=== PATIENT | female | born 1990 | race Caucasian/White ===

== ENCOUNTER 2017-06-28 08:43 | Emergency (ER) | payer MEDICAID, OTHER, SELFPAY ==
[~2017-06-28] VITALS: Ht 162.6 cm; Wt 109.1 kg
[2017-06-28 08:43] VITALS: BP 137/84
[2017-06-28] MEDS ORDERED: PROAAER10 INH ×2 (08:51→09:21)
[2017-06-28] MEDS ORDERED: IPRASOL4 IN ×2 (08:51→09:21)
[2017-06-28] MEDS ORDERED: COMBAER6 INH (08:51)
[2017-06-28] MEDS ORDERED: AZIT-12 PO (09:17)
[2017-06-28] MEDS ORDERED: PRED20TA PO (09:23)
== END 2017-06-28 09:37 | disposition home or self-care (01) ==
LOC: M ED 08:43
DX: J20.9 Acute bronchitis, unspecified (principal); F17.210 Nicotine dependence, cigarettes, uncomplicated; J45.909 Unspecified asthma, uncomplicated; Z88.0 Allergy status to penicillin; Z91.048 Other nonmedicinal substance allergy status; Z79.3 Long term (current) use of hormonal contraceptives; Z79.899 Other long term (current) drug therapy

== ENCOUNTER 2017-07-12 22:28 | Emergency (ER) | payer MEDICAID | END 2017-07-13 01:18 | disposition left against medical advice (07) | LOC: M ED 22:28 | DX: Z53.21 Procedure and treatment not carried out due to patient leaving prior to being seen by health care provider (principal) | CPT/HCPCS: 99281 ==

== ENCOUNTER 2017-07-27 14:43 | Emergency (ER) | payer SELFPAY, MEDICAID ==
[2017-07-27] MEDS: KETOROLAC 60 MG/2 ML VIAL (J1885) IM (17:43)
== END 2017-07-27 18:10 | disposition home or self-care (01) ==
LOC: M ED 14:43
DX: M25.561 Pain in right knee (principal); F17.210 Nicotine dependence, cigarettes, uncomplicated; Z79.899 Other long term (current) drug therapy; Z88.1 Allergy status to other antibiotic agents; Z88.0 Allergy status to penicillin; Z91.048 Other nonmedicinal substance allergy status
CPT/HCPCS: J1885

== ENCOUNTER → 2017-09-18 | Outpatient (CLI) | payer OTHER | LOC: M RAD 17:19 | DX: N64.4 Mastodynia (principal) | CPT/HCPCS: 76642 ==

== ENCOUNTER → 2017-11-04 | Outpatient (REF) | payer OTHER ==
[2017-11-04 22:01] LABS: APPEARANCE, URINE HAZY (CLEAR); BACTERIA, URINE AUTO NEGATIVE (NEGATIVE); BILIRUBIN, URINE AUTO NEGATIVE (NEGATIVE); BLOOD, URINE BLOOD NEGATIVE (NEGATIVE); COLOR, URINE YELLOW (YELLOW); GLUCOSE, URINE (UA) AUTO NEGATIVE (NEGATIVE); KETONE, URINE AUTO NEGATIVE (NEGATIVE); LEUKOCYTE ESTERASE, URINE AUTO NEGATIVE (NEGATIVE); MUCUS, URINE SMALL (NEGATIVE); NITRITE, URINE AUTO NEGATIVE (NEGATIVE); PROTEIN, URINE AUTO NEGATIVE (NEGATIVE); RBC, URINE AUTO 1 /HPF (0-3); SPECIFIC GRAVITY URINE AUTO 1.024 (1.002-1.035); SQUAMOUS EPITHELIAL CELL UR AU 4 /HPF (0-6); UROBILINOGEN, URINE AUTO 0.2 mg/dL (0.0-2.0); WBC, URINE AUTO 1 /HPF (0-3)
[2017-11-04 23:24] LABS: CHLAMYDIA DNA AMPLIFICATION NEGATIVE (NEGATIVE); GC DNA AMPLIFICATION NEGATIVE (NEGATIVE)
== END ==
LOC: M LAB REF 10:37
DX: N39.0 Urinary tract infection, site not specified (principal)
CPT/HCPCS: 81001

== ENCOUNTER 2017-12-03 11:46 | Emergency (ER) | payer OTHER ==
[2017-12-03] MEDS: ALPRAZolam 0.25 MG TAB PO (14:39)
== END 2017-12-03 14:44 | disposition home or self-care (01) ==
LOC: M ED 11:46
DX: F41.9 Anxiety disorder, unspecified (principal); Z88.1 Allergy status to other antibiotic agents; Z91.048 Other nonmedicinal substance allergy status; Z88.0 Allergy status to penicillin
CPT/HCPCS: 99283

== ENCOUNTER → 2017-12-09 | Outpatient (REF) | payer OTHER ==
[2017-12-16 07:01] LABS: SUMMARY SEE SEPARATE REPORT
== END ==
LOC: M LAB REF 16:31
DX: F34.1 Dysthymic disorder (principal)
CPT/HCPCS: 80307

== ENCOUNTER → 2017-12-09 | Outpatient (REF) | payer OTHER, MEDICAID ==
[2017-12-09 19:51] LABS: BASO # 0.1 10^3/uL (0.0-0.2); BASO % 0.7 % (0.0-1.0); EOS # 0.1 10^3/uL (0.0-0.50); EOS % 1.8 % (0.0-3.0); HEMATOCRIT 39.9 % (36.0-47.0); HEMOGLOBIN 12.9 g/dl (12.0-15.5); IMMATURE GRANULOCYTE % 0.4 % (0-3.0); LYMPH # 1.5 10^3/uL (1.5-6.5); LYMPH % 21.4 % (24.0-44.0); MEAN CORPUSCULAR HEMOGLOBIN 29.9 pg (27.0-33.0); MEAN CORPUSCULAR HGB CONC 32.3 g/dl (32.0-36.5); MEAN CORPUSCULAR VOLUME 92.6 fl (80.0-96.0); MONO # 0.5 10^3/uL (0.0-0.8); MONO % 7.6 % (0.0-5.0); NEUTROPHILS # 4.6 10^3/uL (1.8-7.7); NEUTROPHILS % 68.1 % (36.0-66.0); PLATELET COUNT, AUTOMATED 393 10^3/uL (150-450); RED BLOOD COUNT 4.31 10^6/uL (4.00-5.40); RED CELL DISTRIBUTION WIDTH 13.7 % (11.5-14.5); WHITE BLOOD COUNT 6.8 10^3/uL (4.0-10.0)
[2017-12-09 20:06] LABS: FREE THYROXINE INDEX 3.2 % (1.3-4.8); T UPTAKE 34 % (30-39); THYROXINE (T4) 9.4 UG/DL (4.5-12.0)
[2017-12-09 20:30] LABS: ESTIMATED AVERAGE GLUCOSE 100 MG/DL (60-110); HEMOGLOBIN A1c 5.1 %
[2017-12-09 22:41] LABS: TOTAL 25(OH) VITAMIN D 12.7 NG/ML (30.0-100.0)
== END ==
LOC: M LAB REF 18:28
DX: F34.1 Dysthymic disorder (principal)
CPT/HCPCS: 84443

== ENCOUNTER → 2017-12-23 | Outpatient (REF) | payer OTHER ==
[2017-12-23 14:12] LABS: APPEARANCE, URINE HAZY (CLEAR); BACTERIA, URINE AUTO 1+ (NEGATIVE); BILIRUBIN, URINE AUTO NEGATIVE (NEGATIVE); BLOOD, URINE BLOOD NEGATIVE (NEGATIVE); COLOR, URINE YELLOW (YELLOW); GLUCOSE, URINE (UA) AUTO NEGATIVE (NEGATIVE); KETONE, URINE AUTO NEGATIVE (NEGATIVE); LEUKOCYTE ESTERASE, URINE AUTO 3+ (NEGATIVE); NITRITE, URINE AUTO NEGATIVE (NEGATIVE); PROTEIN, URINE AUTO NEGATIVE (NEGATIVE); RBC, URINE AUTO 8 /HPF (0-3); SQUAMOUS EPITHELIAL CELL UR AU 6 /HPF (0-6); UROBILINOGEN, URINE AUTO 0.2 mg/dL (0.0-2.0); WBC, URINE AUTO 45 /HPF (0-3)
== END ==
LOC: M LAB REF 13:15
DX: N39.0 Urinary tract infection, site not specified (principal)

== ENCOUNTER 2017-12-25 02:46 | Emergency (ER) | payer OTHER ==
[2017-12-25] MEDS: diphenhydrAMINE 12.5MG/5ML ELIXIR UDC PO (04:58)
[2017-12-25] MEDS: MAALOX 30 ML SUSP *UDC PO (04:58)
== END 2017-12-25 05:15 | disposition home or self-care (01) ==
LOC: M ED 02:46
DX: B00.2 Herpesviral gingivostomatitis and pharyngotonsillitis (principal); J45.909 Unspecified asthma, uncomplicated; Z79.899 Other long term (current) drug therapy; Z91.89 Other specified personal risk factors, not elsewhere classified; Z88.1 Allergy status to other antibiotic agents; Z88.0 Allergy status to penicillin
CPT/HCPCS: 87255

== ENCOUNTER → 2018-01-11 | Outpatient (REF) | payer OTHER ==
[2018-01-11 22:30] LABS: APPEARANCE, URINE HAZY (CLEAR); BACTERIA, URINE AUTO NEGATIVE (NEGATIVE); BILIRUBIN, URINE AUTO NEGATIVE (NEGATIVE); BLOOD, URINE BLOOD NEGATIVE (NEGATIVE); COLOR, URINE YELLOW (YELLOW); GLUCOSE, URINE (UA) AUTO NEGATIVE (NEGATIVE); KETONE, URINE AUTO NEGATIVE (NEGATIVE); LEUKOCYTE ESTERASE, URINE AUTO 1+ (NEGATIVE); MUCUS, URINE SMALL (NEGATIVE); NITRITE, URINE AUTO NEGATIVE (NEGATIVE); PROTEIN, URINE AUTO 1+ mg/dL (NEGATIVE); RBC, URINE AUTO 4 /HPF (0-3); SPECIFIC GRAVITY URINE AUTO 1.041 (1.002-1.035); SQUAMOUS EPITHELIAL CELL UR AU 15 /HPF (0-6); UROBILINOGEN, URINE AUTO 0.2 mg/dL (0.0-2.0); WBC, URINE AUTO 2 /HPF (0-3)
== END ==
LOC: M LAB REF 09:58
DX: N39.0 Urinary tract infection, site not specified (principal)
CPT/HCPCS: 81001

== ENCOUNTER → 2018-01-12 | Outpatient (REF) | payer OTHER | LOC: M LAB REF 09:03 | DX: K13.70 Unspecified lesions of oral mucosa (principal) | CPT/HCPCS: 87255 ==

== ENCOUNTER → 2018-02-10 | Outpatient (CLI) | payer OTHER ==
[2018-02-10 12:01] LABS: BASO % 0.5 % (0.0-1.0); EOS # 0.2 10^3/uL (0.0-0.50); HEMOGLOBIN 11.7 g/dl (12.0-15.5); IMMATURE GRANULOCYTE % 0.2 % (0-3.0); LYMPH # 1.2 10^3/uL (1.5-6.5); LYMPH % 14.6 % (24.0-44.0); MEAN CORPUSCULAR HEMOGLOBIN 30.3 pg (27.0-33.0); MEAN CORPUSCULAR HGB CONC 32.5 g/dl (32.0-36.5); MEAN CORPUSCULAR VOLUME 93.3 fl (80.0-96.0); MONO # 0.6 10^3/uL (0.0-0.8); MONO % 6.8 % (0.0-5.0); NEUTROPHILS # 6.4 10^3/uL (1.8-7.7); NEUTROPHILS % 75.9 % (36.0-66.0); PLATELET COUNT, AUTOMATED 336 10^3/uL (150-450); RED BLOOD COUNT 3.86 10^6/uL (4.00-5.40); RED CELL DISTRIBUTION WIDTH 14.2 % (11.5-14.5); WHITE BLOOD COUNT 8.4 10^3/uL (4.0-10.0)
[2018-02-10 12:03] LABS: APPEARANCE, URINE CLEAR (CLEAR); BACTERIA, URINE AUTO NEGATIVE (NEGATIVE); BILIRUBIN, URINE AUTO NEGATIVE (NEGATIVE); BLOOD, URINE BLOOD NEGATIVE (NEGATIVE); COLOR, URINE YELLOW (YELLOW); GLUCOSE, URINE (UA) AUTO NEGATIVE (NEGATIVE); KETONE, URINE AUTO NEGATIVE (NEGATIVE); LEUKOCYTE ESTERASE, URINE AUTO NEGATIVE (NEGATIVE); NITRITE, URINE AUTO NEGATIVE (NEGATIVE); PROTEIN, URINE AUTO NEGATIVE (NEGATIVE); RBC, URINE AUTO 2 /HPF (0-3); SPECIFIC GRAVITY URINE AUTO 1.015 (1.002-1.035); SQUAMOUS EPITHELIAL CELL UR AU 2 /HPF (0-6); UROBILINOGEN, URINE AUTO 0.2 mg/dL (0.0-2.0); WBC, URINE AUTO 0 /HPF (0-3)
[2018-02-10 12:17] LABS: CONTROL LINE HCG INT CTR LINE PRESENT; HCG, SERUM QUALITATIVE NEGATIVE (NEGATIVE)
[2018-02-10 12:24] LABS: ERYTHROCYTE SEDIMENTATION RATE 41 mm/hr (0-20)
[2018-02-10 12:36] LABS: FREE T4 1.03 NG/DL (0.76-1.46)
[2018-02-11 14:17] LABS: ANTI DOUBLE STRAND-DNA AB <1 IU/mL (0-9); ANTINUCLEAR ANTIBODIES DIRECT Negative (Negative)
== END ==
LOC: M LAB 11:14
DX: R42 Dizziness and giddiness (principal)
CPT/HCPCS: 84443

== ENCOUNTER → 2018-02-23 | Outpatient (REF) | payer OTHER | LOC: M SFHCPLAZ 14:00 | DX: R30.0 Dysuria (principal); N94.6 Dysmenorrhea, unspecified ==

== ENCOUNTER → 2018-03-20 | Outpatient (REF) | payer OTHER ==
[2018-03-20 17:04] LABS: ALBUMIN 3.7 GM/DL (3.2-5.2); ALBUMIN/GLOBULIN RATIO 1.23 (1.00-1.93); ALKALINE PHOSPHATASE 70 U/L (45-117); ALT/SGPT 19 U/L (12-78); ANION GAP 8 MEQ/L (8-16); AST/SGOT 10 U/L (7-37); BILIRUBIN,TOTAL 0.3 MG/DL (0.2-1.0); BLOOD UREA NITROGEN 10 MG/DL (7-18); CALCIUM LEVEL 8.6 MG/DL (8.5-10.1); CARBON DIOXIDE LEVEL 27 MEQ/L (21-32); CHLORIDE LEVEL 108 MEQ/L (98-107); CHOLESTEROL LEVEL 109 MG/DL (<200); CHOLESTEROL RISK RATIO 2.319 (<5); CREATININE FOR GFR 0.68 MG/DL (0.55-1.30); FREE THYROXINE INDEX 3.6 % (1.3-4.8); GLOMERULAR FILTRATION RATE > 60.0 (>60); GLUCOSE, FASTING 69 MG/DL (70-100); HDL CHOLESTEROL 47 MG/DL (>40); LDL CHOLESTEROL 50.2 MG/DL (<100); NON-HDL-C 62 MG/DL; POTASSIUM SERUM 4.2 MEQ/L (3.5-5.1); SODIUM LEVEL 143 MEQ/L (136-145); T UPTAKE 34 % (30-39); THYROXINE (T4) 10.7 UG/DL (4.5-12.0); TOTAL PROTEIN 6.7 GM/DL (6.4-8.2); TRIGLYCERIDES LEVEL 59 MG/DL (<150)
[2018-03-20 17:12] LABS: ESTIMATED AVERAGE GLUCOSE 97 MG/DL (60-110)
== END ==
LOC: M SFHCPLAZ 14:29
DX: E66.09 Other obesity due to excess calories (principal)
CPT/HCPCS: 84443

== ENCOUNTER → 2018-04-23 | Outpatient (CLI) | payer OTHER ==
[2018-04-23 12:38] LABS: HCG, SERUM QUANTITATIVE 12067 MIU/ML
== END ==
LOC: M LAB 10:46
DX: N91.1 Secondary amenorrhea (principal)
CPT/HCPCS: 84702

== ENCOUNTER 2018-04-26 13:12 | Emergency (ER) | payer OTHER ==
[2018-04-26 13:36] LABS: HEMATOCRIT 36.7 % (36.0-47.0); MEAN CORPUSCULAR HEMOGLOBIN 30.2 pg (27.0-33.0); MEAN CORPUSCULAR HGB CONC 32.7 g/dl (32.0-36.5); MEAN CORPUSCULAR VOLUME 92.4 fl (80.0-96.0); PLATELET COUNT, AUTOMATED 355 10^3/uL (150-450); RED BLOOD COUNT 3.97 10^6/uL (4.00-5.40); RED CELL DISTRIBUTION WIDTH 12.7 % (11.5-14.5); WHITE BLOOD COUNT 9.7 10^3/uL (4.0-10.0)
[2018-04-26 14:25] LABS: HCG, SERUM QUANTITATIVE 11111 MIU/ML
== END 2018-04-26 15:43 | disposition home or self-care (01) ==
LOC: M ED 13:12
DX: O20.0 Threatened abortion (principal); O10.011 Pre-existing essential hypertension complicating pregnancy, first trimester; O99.511 Diseases of the respiratory system complicating pregnancy, first trimester; O99.341 Other mental disorders complicating pregnancy, first trimester; O36.8390 Maternal care for abnormalities of the fetal heart rate or rhythm, unspecified trimester, not applicable or unspecified; O20.8 Other hemorrhage in early pregnancy; Z3A.01 Less than 8 weeks gestation of pregnancy; Z83.3 Family history of diabetes mellitus; Z82.49 Family history of ischemic heart disease and other diseases of the circulatory system; Z79.899 Other long term (current) drug therapy; Z88.1 Allergy status to other antibiotic agents; Z88.0 Allergy status to penicillin; Z91.89 Other specified personal risk factors, not elsewhere classified
CPT/HCPCS: 76801

== ENCOUNTER 2018-04-29 05:35 | Day surgery (SDC) | payer OTHER ==
[2018-04-29] MEDS ORDERED: LIDOCAINE 1% SDV INJ 30 ML VIAL As Ordered (07:12)
[2018-04-29] MEDS ORDERED: KETOROLAC 60 MG/2 ML VIAL (J1885) As Ordered (07:41)
[2018-04-29] MEDS ORDERED: ONDANSETRON 4MG/2ML VIAL (J2405) As Ordered (07:41)
[2018-04-29] MEDS ORDERED: PROPOFOL 200 MG/20 ML VIAL As Ordered (07:41)
[2018-04-29] MEDS ORDERED: fentaNYL 100 MCG/2 ML INJECTION (J3010) As Ordered ×2 (07:41→07:48)
[2018-04-29] MEDS ORDERED: MIDAZOLAM INJ 2 MG/2 ML VIAL (J2250) As Ordered (07:41)
[2018-04-29] MEDS ORDERED: dexameTHASONE 4 MG/ML 1ML VIAL (J1100) As Ordered (07:41)
[2018-04-29] MEDS ORDERED: LIDOCAINE 2% INJ 100 MG/5 ML SDV (FOR ANES.) As Ordered (07:41)
[2018-04-29] MEDS ORDERED: PERCOCET 5MG/325MG TAB As Ordered (08:20)
[2018-04-29] MEDS: PERCOCET 5MG/325MG TAB PO ×2 (08:23→09:00)
[2018-04-29] MEDS ORDERED: METOCLOPRAMIDE INJ 10MG/2ML VIAL (J2765) IV (08:30)
[2018-04-29] MEDS ORDERED: MEPERIDINE INJ 25 MG/ML VIAL (J2175) IV (08:30)
[2018-04-29] MEDS ORDERED: ONDANSETRON 4MG/2ML VIAL (J2405) IV (08:30)
[2018-04-29] MEDS ORDERED: fentaNYL 100 MCG/2 ML INJECTION (J3010) IV (08:30)
[2018-04-29] MEDS ORDERED: LR 1,000 ML IV (08:30)
[2018-04-29] MEDS ORDERED: PERCOCET 5MG/325MG TAB PO (09:00)
[2018-04-29] MEDS ORDERED: KETOROLAC 30 MG/ML VIAL (J1885) IV (09:00)
== END 2018-04-29 09:55 | disposition home or self-care (01) ==
LOC: M SDC 05:35
DX: O02.1 Missed abortion (principal); F41.9 Anxiety disorder, unspecified; F32.9 Major depressive disorder, single episode, unspecified; J45.909 Unspecified asthma, uncomplicated; Z88.0 Allergy status to penicillin; F17.210 Nicotine dependence, cigarettes, uncomplicated
CPT/HCPCS: 59820

== ENCOUNTER → 2018-06-30 | Outpatient (CLI) | payer OTHER ==
[~2018-06-30] MED LIST: ACYC400T PO; AZIT-12 PO; COMBAER6 INH; IBUP80TA PO; IPRA0.00 IN; MAALSUS2 PO; MACR100C43 PO; NAPR-885 PO; PERCOCET PO; PRED10PA PO; PRED20TA PO; PROAAER10 INH; PYRI1TAB5 PO; TYLE325T5 PO; VALA1TAB2 PO; XANA0.25 PO
== END ==
LOC: M LAB 16:33
PROVIDERS: ATTEND Specialist
DX: N91.2 Amenorrhea, unspecified (principal)

== ENCOUNTER → 2019-02-25 | Outpatient (CLI) | payer OTHER ==
[2019-02-25 17:23] LABS: HEMATOCRIT 37.3 % (36.0-47.0); HEMOGLOBIN 12.3 g/dl (12.0-15.5); MEAN CORPUSCULAR HEMOGLOBIN 29.2 pg (27.0-33.0); MEAN CORPUSCULAR VOLUME 88.6 fl (80.0-96.0); PLATELET COUNT, AUTOMATED 407 10^3/uL (150-450); RED BLOOD COUNT 4.21 10^6/uL (4.00-5.40)
[2019-02-25 17:37] LABS: HEMOGLOBIN A1c 5.5 %
[2019-02-25 17:47] LABS: ALBUMIN 3.8 GM/DL (3.2-5.2); ALT/SGPT 22 U/L (12-78); BILIRUBIN,TOTAL 0.2 MG/DL (0.2-1.0); BLOOD UREA NITROGEN 8 MG/DL (7-18); CALCIUM LEVEL 8.7 MG/DL (8.5-10.1); CARBON DIOXIDE LEVEL 26 MEQ/L (21-32); CHLORIDE LEVEL 107 MEQ/L (98-107); CHOLESTEROL LEVEL 157 MG/DL (<200); CHOLESTEROL RISK RATIO 3.488 (<5); CREATININE FOR GFR 0.85 MG/DL (0.55-1.30); GLOMERULAR FILTRATION RATE > 60.0 (>60); GLUCOSE, FASTING 77 MG/DL (70-100); HDL CHOLESTEROL 45 MG/DL (>40); LDL CHOLESTEROL 96 MG/DL (<100); NON-HDL-C 112 MG/DL; POTASSIUM SERUM 3.7 MEQ/L (3.5-5.1); SODIUM LEVEL 141 MEQ/L (136-145); TRIGLYCERIDES LEVEL 81 MG/DL (<150)
== END ==
LOC: M LAB 15:41
PROVIDERS: ATTEND Internal Medicine
DX: Z00.00 Encounter for general adult medical examination without abnormal findings (principal)

== ENCOUNTER → 2019-02-25 | Outpatient (CLI) | payer OTHER ==
[2019-02-25 17:23] LABS: BASO # 0.1 10^3/uL (0.0-0.2); BASO % 0.5 % (0.0-1.0); EOS # 0.2 10^3/uL (0.0-0.50); EOS % 1.8 % (0.0-3.0); HEMATOCRIT 38.7 % (36.0-47.0); HEMOGLOBIN 12.6 g/dl (12.0-15.5); LYMPH # 1.6 10^3/uL (1.5-4.5); LYMPH % 16.8 % (24.0-44.0); MEAN CORPUSCULAR HEMOGLOBIN 29.8 pg (27.0-33.0); MEAN CORPUSCULAR HGB CONC 32.6 g/dl (32.0-36.5); MEAN CORPUSCULAR VOLUME 91.5 fl (80.0-96.0); MONO # 0.5 10^3/uL (0.0-0.8); NEUTROPHILS # 7.3 10^3/uL (1.8-7.7); NEUTROPHILS % 75.4 % (36.0-66.0); PLATELET COUNT, AUTOMATED 386 10^3/uL (150-450); RED BLOOD COUNT 4.23 10^6/uL (4.00-5.40); WHITE BLOOD COUNT 9.8 10^3/uL (4.0-10.0)
[2019-02-25 17:47] LABS: HEMATOCRIT 38.7 % (36.0-47.0)
[2019-02-25 17:54] LABS: ALBUMIN 3.7 GM/DL (3.2-5.2); ALT/SGPT 21 U/L (12-78); BILIRUBIN,TOTAL 0.2 MG/DL (0.2-1.0); BLOOD UREA NITROGEN 8 MG/DL (7-18); CALCIUM LEVEL 8.5 MG/DL (8.5-10.1); CARBON DIOXIDE LEVEL 26 MEQ/L (21-32); CHLORIDE LEVEL 106 MEQ/L (98-107); CREATININE FOR GFR 0.85 MG/DL (0.55-1.30); FREE T3 2.5 PG/ML (2.2-4.0); GLOMERULAR FILTRATION RATE > 60.0 (>60); GLUCOSE, FASTING 73 MG/DL (70-100); POTASSIUM SERUM 3.7 MEQ/L (3.5-5.1); RHEUMATOID FACTOR QUANT < 10.0 IU/ML (<15.0); SODIUM LEVEL 140 MEQ/L (136-145); TOTAL PROTEIN 6.8 GM/DL (6.4-8.2)
[2019-02-25 17:56] LABS: TOTAL 25(OH) VITAMIN D 15.5 NG/ML (30.0-100.0); VITAMIN B12 LEVEL 629 PG/ML (247-911)
[2019-02-26 10:10] LABS: THYROID PEROXIDASE ANTIBODY > 1300.0 U/ML (<60.0)
== END ==
LOC: M LAB 15:46
PROVIDERS: ATTEND Nurse Practitioner Pediatrics
DX: F60.3 Borderline personality disorder (principal); F41.1 Generalized anxiety disorder

== ENCOUNTER → 2019-03-12 | Outpatient (CLI) | payer OTHER ==
[~2019-03-12] MED LIST changes: -VALA1TAB2 PO; +VALA1TAB64 PO
[2019-03-12 14:34] LABS: FOLLICLE STIMULATING HORMONE 5.1 mIU/mL; LUTEINIZING HORMONE 2.6 mIU/mL; PROGESTERONE 0.25 NG/ML
[2019-03-18 00:06] LABS: DEHYDROEPIANDROSTERONE UNCONJ 92 ng/dL (31-701); ESTROGENS TOTAL 90 pg/mL (.)
== END ==
LOC: M LAB 13:23
PROVIDERS: ATTEND Nurse Practitioner Pediatrics
DX: F32.81 Premenstrual dysphoric disorder (principal)

== ENCOUNTER → 2019-03-31 | Outpatient (CLI) | payer OTHER ==
[~2019-03-31] MED LIST changes: +VALA1TAB2 PO; -VALA1TAB64 PO
[2019-03-31 11:25] LABS: FREE T3 3.2 PG/ML (2.2-4.0); FREE T4 1.11 NG/DL (0.76-1.46)
== END ==
LOC: M LAB 10:22
PROVIDERS: ATTEND Nurse Practitioner Pediatrics
DX: E06.3 Autoimmune thyroiditis (principal); F33.2 Major depressive disorder, recurrent severe without psychotic features; F90.0 Attention-deficit hyperactivity disorder, predominantly inattentive type

== ENCOUNTER → 2019-05-12 | Outpatient (CLI) | payer OTHER ==
[2019-05-12 14:32] LABS: FREE T3 3.3 PG/ML (2.2-4.0); FREE T4 1.2 NG/DL (0.76-1.46)
[2019-05-12 14:37] LABS: TOTAL 25(OH) VITAMIN D 18.5 NG/ML (30.0-100.0)
== END ==
LOC: M LAB 12:55
PROVIDERS: ATTEND Nurse Practitioner Pediatrics
DX: E06.3 Autoimmune thyroiditis (principal); F33.2 Major depressive disorder, recurrent severe without psychotic features

== ENCOUNTER → 2019-08-09 | Outpatient (CLI) | payer OTHER ==
[~2019-08-09] MED LIST changes: -VALA1TAB2 PO; +VALA1TAB64 PO
== END ==
LOC: M LAB 13:55
PROVIDERS: ATTEND Internal Medicine
DX: Z3A.01 Less than 8 weeks gestation of pregnancy (principal)

== ENCOUNTER → 2019-08-27 | Outpatient (REF) | payer OTHER ==
[~2019-08-27] MED LIST changes: +VALA1TAB5 PO; -VALA1TAB64 PO
== END ==
LOC: M SFHCPLAZ 15:58
DX: Z3A.09 9 weeks gestation of pregnancy (principal)

== ENCOUNTER → 2019-08-27 | Outpatient (CLI) | payer OTHER ==
[2019-08-27 18:07] LABS: AMORPHOUS SEDIMENT SMALL (NEGATIVE); APPEARANCE, URINE HAZY (CLEAR); BACTERIA, URINE AUTO 1+ (NEGATIVE); BILIRUBIN, URINE AUTO NEGATIVE (NEGATIVE); BLOOD, URINE BLOOD NEGATIVE (NEGATIVE); COLOR, URINE YELLOW (YELLOW); GLUCOSE, URINE (UA) AUTO NEGATIVE (NEGATIVE); KETONE, URINE AUTO NEGATIVE (NEGATIVE); LEUKOCYTE ESTERASE, URINE AUTO TRACE (NEGATIVE); MUCUS, URINE SMALL (NEGATIVE); NITRITE, URINE AUTO NEGATIVE (NEGATIVE); PROTEIN, URINE AUTO NEGATIVE (NEGATIVE); RBC, URINE AUTO 2 /HPF (0-3); SPECIFIC GRAVITY URINE AUTO 1.027 (1.002-1.035); SQUAMOUS EPITHELIAL CELL UR AU 1 /HPF (0-6); UROBILINOGEN, URINE AUTO 0.2 mg/dL (0.0-2.0); WBC, URINE AUTO 4 /HPF (0-3)
[2019-08-27 18:08] LABS: BASO % 0.4 % (0.0-1.0); EOS # 0.1 10^3/uL (0.0-0.5); EOS % 0.6 % (0.0-3.0); HEMATOCRIT 37.5 % (36.0-47.0); HEMOGLOBIN 12.1 g/dl (12.0-15.5); LYMPH # 2.2 10^3/uL (1.5-5.0); LYMPH % 22.5 % (24.0-44.0); MEAN CORPUSCULAR HEMOGLOBIN 29.7 pg (27.0-33.0); MEAN CORPUSCULAR HGB CONC 32.3 g/dl (32.0-36.5); MEAN CORPUSCULAR VOLUME 91.9 fl (80.0-96.0); MONO # 0.8 10^3/uL (0.0-0.8); MONO % 8.1 % (0.0-5.0); NEUTROPHILS # 6.8 10^3/uL (1.5-8.5); NEUTROPHILS % 68.2 % (36.0-66.0); PLATELET COUNT, AUTOMATED 372 10^3/uL (150-450); RED BLOOD COUNT 4.08 10^6/uL (4.00-5.40)
[2019-08-27 18:30] LABS: ALBUMIN 3.6 GM/DL (3.2-5.2); ALT/SGPT 17 U/L (12-78); BILIRUBIN,TOTAL 0.1 MG/DL (0.2-1.0); BLOOD UREA NITROGEN 9 MG/DL (7-18); CARBON DIOXIDE LEVEL 27 MEQ/L (21-32); CHLORIDE LEVEL 108 MEQ/L (98-107); CREATININE FOR GFR 0.58 MG/DL (0.55-1.30); FREE T4 0.94 NG/DL (0.76-1.46); GLOMERULAR FILTRATION RATE > 60.0 (>60); GLUCOSE, FASTING 75 MG/DL (70-100); POTASSIUM SERUM 3.7 MEQ/L (3.5-5.1); SODIUM LEVEL 141 MEQ/L (136-145); TOTAL PROTEIN 6.6 GM/DL (6.4-8.2)
== END ==
LOC: M PLALAB 15:50
PROVIDERS: ATTEND Internal Medicine
DX: Z34.81 Encounter for supervision of other normal pregnancy, first trimester (principal); Z3A.09 9 weeks gestation of pregnancy

== ENCOUNTER → 2019-10-28 | Outpatient (REF) | payer OTHER ==
[2019-10-28 17:38] LABS: HEMATOCRIT 35.8 % (36.0-47.0); HEMOGLOBIN 11.6 g/dl (12.0-15.5); MEAN CORPUSCULAR HEMOGLOBIN 30.6 pg (27.0-33.0); MEAN CORPUSCULAR HGB CONC 32.4 g/dl (32.0-36.5); MEAN CORPUSCULAR VOLUME 94.5 fl (80.0-96.0); PLATELET COUNT, AUTOMATED 344 10^3/uL (150-450); RED BLOOD COUNT 3.79 10^6/uL (4.00-5.40); WHITE BLOOD COUNT 9.5 10^3/uL (4.0-10.0)
[2019-10-28 17:54] LABS: ALBUMIN 3.2 GM/DL (3.2-5.2); ALT/SGPT 14 U/L (12-78); BILIRUBIN,TOTAL 0.3 MG/DL (0.2-1.0); BLOOD UREA NITROGEN 6 MG/DL (7-18); CALCIUM LEVEL 8.7 MG/DL (8.5-10.1); CARBON DIOXIDE LEVEL 24 MEQ/L (21-32); CHLORIDE LEVEL 107 MEQ/L (98-107); CREATININE FOR GFR 0.51 MG/DL (0.55-1.30); GLOMERULAR FILTRATION RATE > 60.0 (>60); GLUCOSE CHALLENGE TEST 1 HOUR 113 MG/DL (LESS THAN 140); GLUCOSE, FASTING 113 MG/DL (70-100); LDH LACTATE DEHYDROGENASE 122 U/L (84-246); POTASSIUM SERUM 3.7 MEQ/L (3.5-5.1); SODIUM LEVEL 138 MEQ/L (136-145); TOTAL PROTEIN 6.6 GM/DL (6.4-8.2); URIC ACID 3.4 MG/DL (2.6-6.0)
[2019-10-28 17:58] LABS: HEMOGLOBIN A1c 5.3 %
[2019-10-28 18:01] LABS: TOTAL PROTEIN,RANDOM URINE 16.4 MG/DL (0.0-12.0)
[2019-10-28 19:04] LABS: CHLAMYDIA DNA AMPLIFICATION NEGATIVE (NEGATIVE); GC DNA AMPLIFICATION NEGATIVE (NEGATIVE)
[2019-10-29 08:10] LABS: RUBELLA IgG QUALITATIVE IMMUNE (IMMUNE)
[2019-10-29 08:39] LABS: HIV 1&2 SCREEN CENTAUR NEGATIVE (NEGATIVE)
[2019-10-29 08:52] LABS: HEPATITIS B SURFACE ANTIGEN NEGATIVE (NEGATIVE)
[2019-10-29 09:20] LABS: HEPATITIS C VIRUS ABY INDEX 0.1 INDEX (<0.8)
== END ==
LOC: M PLALAB 11:33
PROVIDERS: ATTEND Obstetrics & Gynecology
DX: O10.911 Unspecified pre-existing hypertension complicating pregnancy, first trimester (principal); Z3A.14 14 weeks gestation of pregnancy; O99.211 Obesity complicating pregnancy, first trimester; E06.3 Autoimmune thyroiditis; O99.280 Endocrine, nutritional and metabolic diseases complicating pregnancy, unspecified trimester

== ENCOUNTER → 2019-11-08 | Outpatient (CLI) | payer OTHER ==
--- NOTE | 2019-11-08 11:55 | REP ---
REASON FOR EXAM: anatomy. Multiple ultrasonographic images of the gravid uterus show a single living intrauterine gestation in the ced breech presentation. Doppler interrogation of the heart shows a heart rate of 136 beats per minute. The placenta is posterior and not low lying. The subjective amniotic fluid volume is within normal limits. The cervix measures 3.6 cm in length and is closed. Evaluation of the maternal adnexal spaces shows no abnormalities. BPD 4.5 cm = 19 weeks 3 days HC 16.2 cm = 19 weeks 0 days AC 13.7 cm = 19 weeks 1 day FL 2.9 cm = 19 weeks 0 days The estimated weight is 272 grams, which is at the 50th percentile for a 19 week 0 day gestational age. Structures visualized as unremarkable are as follows: Thalami, cavum septum pellucidum, cerebellum, cisterna magna, cerebral ventricles, urinary bladder, three-vessel umbilical cord, cord insertion, stomach, four-chamber heart, left ventricular outflow tract, and extremities. The structures suboptimally visualized are as follows: spine, kidneys, and right ventricular outflow tract. IMPRESSION: Single living intrauterine gestation, as described above, with an estimated gestational age of 19 weeks 0 days via composite criteria and an estimated date of delivery of 04/03/2020 by today's exam. No anomalies were detected, however, I recommend a followup examination to better visualize those structures not well seen today, as described above.
== END ==
LOC: M WHC 08:10
PROVIDERS: ATTEND Obstetrics & Gynecology
DX: Z3A.14 14 weeks gestation of pregnancy (principal)

== ENCOUNTER → 2019-11-19 | Outpatient (REF) | payer OTHER ==
[2019-11-19 18:09] LABS: APPEARANCE, URINE CLEAR (CLEAR); BACTERIA, URINE AUTO NEGATIVE (NEGATIVE); BILIRUBIN, URINE AUTO NEGATIVE (NEGATIVE); BLOOD, URINE BLOOD NEGATIVE (NEGATIVE); COLOR, URINE YELLOW (YELLOW); GLUCOSE, URINE (UA) AUTO NEGATIVE (NEGATIVE); KETONE, URINE AUTO TRACE mg/dL (NEGATIVE); LEUKOCYTE ESTERASE, URINE AUTO NEGATIVE (NEGATIVE); MUCUS, URINE SMALL (NEGATIVE); NITRITE, URINE AUTO NEGATIVE (NEGATIVE); PROTEIN, URINE AUTO NEGATIVE (NEGATIVE); RBC, URINE AUTO 4 /HPF (0-3); SPECIFIC GRAVITY URINE AUTO 1.036 (1.002-1.035); SQUAMOUS EPITHELIAL CELL UR AU 1 /HPF (0-6); UROBILINOGEN, URINE AUTO 0.2 mg/dL (0.0-2.0); WBC, URINE AUTO 1 /HPF (0-3)
== END ==
LOC: M SFHCPLAZ 17:06
PROVIDERS: ATTEND Internal Medicine
DX: R30.0 Dysuria (principal)

== ENCOUNTER → 2019-12-22 | Outpatient (CLI) | payer OTHER ==
--- NOTE | 2019-12-22 17:17 | REP ---
REASON: Followup anatomy. Multiple sonographic images of the gravid uterus show a single living intrauterine gestation in a breech presentation. Doppler interrogation of the heart shows a heart rate of 146 beats per minute. The placenta is posterior and not low lying. The subjective amniotic fluid volume is within normal limits. The cervix measures 4.4 cm in length and is closed. Evaluation of the maternal adnexal spaces shows no abnormalities. BPD 6.5 cm = 26 weeks 2 days HC 24.7 cm = 26 weeks 6 days AC 22.2 cm = 26 weeks 4 days FL 4.8 cm = 26 weeks 1 day The estimated weight is 939 grams, which is at the 78th percentile for a 25 week 2 day gestational age. The right ventricular outflow tract and kidneys were well seen today and had a normal appearance. The spine was again seen suboptimally due to the lie. IMPRESSION: Single living intrauterine gestation, as described above, with an estimated gestational age of 26 weeks 1 day via composite criteria and an estimated date of delivery of 03/28/2020 by today's exam. No anomalies were detected, however, I recommend a followup examination to confirm the spine.
== END ==
LOC: M WHC 10:00
PROVIDERS: ATTEND Advanced Practice Midwife
DX: O99.212 Obesity complicating pregnancy, second trimester (principal); E66.9 Obesity, unspecified; Z3A.26 26 weeks gestation of pregnancy

== ENCOUNTER → 2020-01-21 | Outpatient (REF) | payer OTHER ==
[~2020-01-21] MED LIST changes: +ALBUTEROL IH; +ASPI1CHW3 PO; +DOCU100C16 PO; +NP T30TA PO; +PRENTAB9 PO
[2020-01-21 13:20] LABS: HEMATOCRIT 33.2 % (36.0-47.0); HEMOGLOBIN 10.7 g/dl (12.0-15.5); MEAN CORPUSCULAR HEMOGLOBIN 29.5 pg (27.0-33.0); MEAN CORPUSCULAR HGB CONC 32.2 g/dl (32.0-36.5); MEAN CORPUSCULAR VOLUME 91.5 fl (80.0-96.0); PLATELET COUNT, AUTOMATED 311 10^3/uL (150-450); RED BLOOD COUNT 3.63 10^6/uL (4.00-5.40); WHITE BLOOD COUNT 12.2 10^3/uL (4.0-10.0)
[2020-01-21 14:25] LABS: FREE T4 0.85 NG/DL (0.76-1.46); THYROID STIMULATING HORMONE 0.999 uIU/ML (0.358-3.740)
== END ==
LOC: M PLALAB 11:06
PROVIDERS: ATTEND Advanced Practice Midwife
DX: O99.212 Obesity complicating pregnancy, second trimester (principal); E66.9 Obesity, unspecified

== ENCOUNTER → 2020-01-21 | Outpatient (CLI) | payer OTHER ==
--- NOTE | 2020-01-22 09:23 | REP ---
REASON FOR EXAM: Followup spine. Multiple ultrasonographic images of the gravid uterus show a single living intrauterine gestation in the cephalic presentation. Doppler interrogation of the heart shows a heart rate of 144 beats per minute. The placenta is posterior and not low lying. The subjective amniotic fluid volume is within normal limits. The cervix measures 3.4 cm in length and is closed. Evaluation of the maternal adnexal spaces shows no gross abnormalities. The calculated amniotic fluid index is 11.4, and expected range 9.1-23.3. BPD 7.6 cm = 30 weeks 4 days HC 29.2 cm = 32 weeks 1 day AC 28.2 cm = 32 weeks 2 days FL 6.1 cm = 31 weeks 5 days The estimated weight is 1869 grams, which is at the 97th percentile for a 29 week 4 day gestational age. The spine was seen to be within normal limits. IMPRESSION: Single living intrauterine gestation, as described above, with an estimated gestational age of 31 weeks 3 days via composite criteria and an estimated date of delivery of 03/21/2020 by today's exam. No anomalies were detected. The examination confirms a normal-appearing spine.
== END ==
LOC: M WHC 11:04
PROVIDERS: ATTEND Advanced Practice Midwife
DX: O99.283 Endocrine, nutritional and metabolic diseases complicating pregnancy, third trimester (principal); Z3A.31 31 weeks gestation of pregnancy

== ENCOUNTER → 2020-02-08 | Outpatient (CLI) | payer OTHER ==
--- NOTE | 2020-03-31 16:16 | REP ---
OBSTETRIC SONOGRAPHY HISTORY: Chronic hypertension affecting . growth study. This report was delayed due to a protracted network disruption experienced by this facility. FINDINGS: Scanning through the gravid uterus demonstrates single intrauterine gestation in a cephalic lie. Placenta is posterior grade 2 without evidence of previa or abruption. Closed cervical length is measured at 3.3 cm viewed transabdominally. Amniotic fluid is subjectively normal. PIERRE is normal at 14.7 cm. heart rate is recorded at 139 beats per minute. Biophysical profile score is 8 out of a possible 8. S/D ratio in the umbilical cord artery by Doppler is normal at 2.7. Left-sided stomach, kidneys and bladder, face and lips are seen and felt to be unremarkable today. BIOMETRY CHART: BPD 82.6 mm 33 weeks 2 days Head Circumference 306 mm 34 weeks 2 days Abdominal Circumference 284 mm 32 weeks 4 days Femur Length 64 mm 33 weeks 1 day Humeral Length 56 mm 32 weeks 6 days Estimated Weight 2072 g 68th percentile IMPRESSION: Single living intrauterine gestation at 33 weeks 3 days by todays composite criteria. Estimated date of delivery (ANUPAM) by todays sonography 03/25/2020. MTDD
== END ==
LOC: M WHC 07:16
PROVIDERS: ATTEND Advanced Practice Midwife
DX: O10.913 Unspecified pre-existing hypertension complicating pregnancy, third trimester (principal); Z3A.33 33 weeks gestation of pregnancy

== ENCOUNTER → 2020-02-16 | Outpatient (CLI) | payer OTHER ==
--- NOTE | 2020-04-06 15:43 | REP ---
LIMITED OBSTETRIC SONOGRAPHY HISTORY: Chronic maternal hypertension affecting . Weekly biophysical profile score. This report was delayed due to a protracted episode of network disruption experienced by this facility. FINDINGS: Scanning through the gravid uterus demonstrates a viable single intrauterine gestation in a breech lie. The placenta is posterior grade 1 without evidence of placenta previa or abruption. cm. heart rate is recorded at 142 beats per minute. Biophysical profile score is 8 out of a possible 8. S/D ratio of the umbilical cord artery by Doppler is normal at 2.8. Normal stomach, kidneys, and bladder are seen today. MTDD
== END ==
LOC: M WHC 05:28
PROVIDERS: ATTEND Advanced Practice Midwife
DX: O10.919 Unspecified pre-existing hypertension complicating pregnancy, unspecified trimester (principal); Z3A.00 Weeks of gestation of pregnancy not specified; O32.1XX0 Maternal care for breech presentation, not applicable or unspecified

== ENCOUNTER → 2020-02-23 | Outpatient (CLI) | payer OTHER ==
--- NOTE | 2020-04-06 15:42 | REP ---
LIMITED OBSTETRIC ULTRASOUND FOR BIOPHYSICAL PROFILE Delay in reporting results from malfunction of the hospital computer system as the result of a malware attack. FINDINGS: There is single intrauterine gestation in a cephalic presentation. The placenta is posterior, grade 1, without previa and without abruptio. heart rate is 165 beats per minute. The amniotic fluid subjectively is normal. BIOPHYSICAL PROFILE: motion 2 breathing 2 tone 2 Amniotic fluid volume 2 Total BPP score 8/8 Cervix measures 4.3 cm in length. No further evaluation is requested or performed at this time. ABBID
== END ==
LOC: M WHC 17:13
PROVIDERS: ATTEND Advanced Practice Midwife
DX: O10.919 Unspecified pre-existing hypertension complicating pregnancy, unspecified trimester (principal); Z3A.00 Weeks of gestation of pregnancy not specified

== ENCOUNTER → 2020-03-01 | Outpatient (REF) | payer OTHER ==
[2020-03-01 17:38] LABS: APPEARANCE, URINE MANUAL CLEAR (CLEAR); BILIRUBIN, URINE MANUAL NEGATIVE (NEGATIVE); BLOOD URINE MANUAL NEGATIVE (NEGATIVE); COLOR, URINE MANUAL YELLOW (YELLOW); GLUCOSE, URINE (UA) MANUAL NEGATIVE (NEGATIVE); KETONE, URINE MANUAL 1+ mg/dL (NEGATIVE); LEUKOCYTE ESTERASE, URINE MAN NEGATIVE (NEGATIVE); NITRITE, URINE MANUAL NEGATIVE (NEGATIVE); PH,URINE MAN 5.5 UNITS (5.0 - 7.0); PROTEIN, URINE MANUAL NEGATIVE (NEGATIVE); SPECIFIC GRAVITY,URINE MANUAL 1.026 (1.002-1.035); UROBILINOGEN, URINE MANUAL NORMAL (NORMAL)
== END ==
LOC: M LAB REF 16:29
PROVIDERS: ATTEND Physician Assistant Medical
DX: N39.0 Urinary tract infection, site not specified (principal)

== ENCOUNTER → 2020-03-01 | Outpatient (CLI) | payer OTHER ==
--- NOTE | 2020-04-06 15:44 | REP ---
LIMITED ULTRASOUND CLINICAL: wellbeing. Biophysical profile score. COMPARISON: 02/08/2020. TECHNIQUE: Transabdominal obstetrical ultrasound with color Doppler evaluation. FINDINGS: Examination demonstrates a single live advanced gestation in cephalic presentation. motion identified by the technologist. Placenta noted postoperatively, grade 1, and without placenta previa or abruption. Amniotic fluid volume is upper limits of normal. PIERRE equals 21.2 cm. heart rate equals 161 beats per minute. Gestational age by current measures 36 weeks one day with estimated date of delivery 03/28/2020. Estimated weight 2666 grams (34th percentile). Umbilical cord S/D ratio: 2.20. Amniotic fluid index: 21.2 cm. Biophysical profile score 8 out of 8. IMPRESSION: * Single live advanced gestation in cephalic presentation demonstrating appropriate estimated weight. * Biophysical profile score and amniotic fluid volume within normal range as above. MTDD
== END ==
LOC: M WHC 11:03
PROVIDERS: ATTEND Advanced Practice Midwife
DX: O10.913 Unspecified pre-existing hypertension complicating pregnancy, third trimester (principal); Z3A.36 36 weeks gestation of pregnancy

== ENCOUNTER → 2020-03-03 | Outpatient (REF) | payer OTHER | LOC: M LAB REF 14:11 | PROVIDERS: ATTEND Advanced Practice Midwife | DX: Z34.83 Encounter for supervision of other normal pregnancy, third trimester (principal) ==

== ENCOUNTER → 2020-03-08 | Outpatient (CLI) | payer OTHER ==
--- NOTE | 2020-03-15 18:41 | REP ---
OBSTETRIC SONOGRAPHY HISTORY: Supervision of for biophysical profile. Chronic hypertension. Limited study. FINDINGS: Scanning through the gravid uterus demonstrates a viable single intrauterine gestation in a cephalic lie. The placenta is posterior grade 2 without evidence of placenta previa or abruption. Amniotic fluid is subjectively normal. PIERRE is normal at 12.8 cm. Biophysical profile score is 8 out of a possible 8. S/D ratio in the umbilical cord artery by Doppler is normal at 2.7. heart rate is recorded at 155 beats per minute. Normal kidneys, bladder, and three- vessel cord are observed today. MTDD
== END ==
LOC: M WHC 11:09
PROVIDERS: ATTEND Advanced Practice Midwife
DX: O10.919 Unspecified pre-existing hypertension complicating pregnancy, unspecified trimester (principal)

== ENCOUNTER → 2020-03-15 | Outpatient (CLI) | payer OTHER ==
--- NOTE | 2020-04-12 10:01 | REP ---
LIMITED OBSTETRICAL ULTRASOUND FOR BIOPHYSICAL PROFILE SCORE COMPARISON: 03/08/2020. CLINICAL: Hypertension. Biophysical profile score. TECHNIQUE: Transabdominal obstetrical ultrasound with color Doppler evaluation. FINDINGS: Ultrasound examination demonstrates a single live advanced gestation in cephalic presentation. motion was identified by the technologist. heart rate equals 155 beats per minute. Placenta noted posteriorly and grade 2 without evidence for placenta previa or abruption. Amniotic fluid volume is within normal limits. PIERRE equals 14.2 cm. MEASUREMENTS: BPD 92 mm 37 weeks 1 day Head Circumference 325 mm 36 weeks 6 days Abdominal Circumference 325 mm 36 weeks 4 days Femur Length 72 mm 37 weeks 0 days Humeral Length 62 mm 36 weeks 0 days Estimated gestational age by current measurements 37 weeks 0 days. Estimated weight 3007 grams (45th percentile). Umbilical cord S/D ratio 2.7. Biophysical profile score equals 8 out of 8. IMPRESSION: Single live advanced gestation in cephalic presentation. Biophysical profile score equals 8 out of 8. Amniotic fluid volume normal. Estimated weight normal. MTDD
== END ==
LOC: M WHC 10:56
PROVIDERS: ATTEND Advanced Practice Midwife
DX: Z36.2 Encounter for other antenatal screening follow-up (principal); O10.919 Unspecified pre-existing hypertension complicating pregnancy, unspecified trimester

== ENCOUNTER 2020-03-22 10:36 | Inpatient (IN) | payer OTHER ==
[~2020-03-22] VITALS: Ht 162.6 cm; Wt 129.6 kg
[2020-03-22] MEDS: NP THYROID 15 MG PO SCH (06:00)
[~2020-03-22 10:36] MED LIST changes: -ALBUTEROL IH; -ASPI1CHW3 PO; -DOCU100C16 PO; -NP T30TA PO; -PRENTAB9 PO
[2020-03-22] MEDS ORDERED: ASPI1CHW3 PO (11:02)
[2020-03-22] MEDS ORDERED: PRENTAB9 PO (11:02)
[2020-03-22 11:20] VITALS: BP 140/81
[2020-03-22] MEDS ORDERED: hydrOXYzine 50 MG TAB PO PRN (12:00)
[2020-03-22] MEDS ORDERED: ALBUTEROL 90 MCG/ACT 8GM HFA INHALER INH PRN (12:00)
[2020-03-22] MEDS ORDERED: NP T30TA PO (12:01)
[2020-03-22] MEDS ORDERED: ALBUTEROL IH (12:30)
[2020-03-22] MEDS: miSOPROStol 50 MCG 1/2 TAB (S0191) PO SCH ×3 (12:58→21:43)
[2020-03-22 13:10] LABS: HEMATOCRIT 36.5 % (36.0-47.0); HEMOGLOBIN 11.8 g/dl (12.0-15.5); MEAN CORPUSCULAR HEMOGLOBIN 29.1 pg (27.0-33.0); MEAN CORPUSCULAR HGB CONC 32.3 g/dl (32.0-36.5); MEAN CORPUSCULAR VOLUME 89.9 fl (80.0-96.0); PLATELET COUNT, AUTOMATED 291 10^3/uL (150-450); RED BLOOD COUNT 4.06 10^6/uL (4.00-5.40); WHITE BLOOD COUNT 12.8 10^3/uL (4.0-10.0)
[2020-03-22 13:36] LABS: ALT/SGPT 16 U/L (12-78); BILIRUBIN,TOTAL 0.2 MG/DL (0.2-1.0); GLOMERULAR FILTRATION RATE > 60.0 (>60); LDH LACTATE DEHYDROGENASE 160 U/L (84-246); URIC ACID 4.2 MG/DL (2.6-6.0)
[2020-03-22 14:59] VITALS: BP 139/82
[2020-03-22] MEDS ORDERED: ACETAMINOPHEN 500 MG TAB PO PRN (16:00)
[2020-03-22 17:08] VITALS: BP 143/81
[2020-03-22 18:13] VITALS: BP 139/79
[2020-03-22] MEDS: COMBIVENT RESPIMAT 100-20MCG INHALER 4GM INH SCH (20:22)
[2020-03-23] MEDS: miSOPROStol 50 MCG 1/2 TAB (S0191) PO SCH ×3 (02:30→08:30)
[2020-03-23] MEDS: NP THYROID 15 MG PO SCH (07:18)
[2020-03-23] MEDS: COMBIVENT RESPIMAT 100-20MCG INHALER 4GM INH SCH (07:39)
[2020-03-23] MEDS ORDERED: OXYTOCIN DRIP 30 UNITS in IV 1 EA IV SCH ×2 (11:45→21:08)
[2020-03-23] MEDS: LR 1,000 ML IV SCH ×3 (12:05→21:08)
[2020-03-23] MEDS ORDERED: ceFAZolin SOD 3 GM in IV 1 EA IV ONE (19:15)
[2020-03-23] MEDS ORDERED: BICITRA 30ML SOLN UDC PO ONE (19:15)
[2020-03-23] MEDS ORDERED: AZITHROMYCIN INJ 500 MG, VIAL MATE ADAPTER 1 EACH in D5W 250 ML IV ONE (19:15)
[2020-03-23] MEDS ORDERED: ceFAZolin SOD 2 GM in IV 1 EA IV ONE (19:15)
[2020-03-23] MEDS ORDERED: ceFAZolin SOD 1 GM in D5W MINI-BAG PLUS 50 ML IV ONE (19:15)
[2020-03-23] MEDS ORDERED: MORPHINE PRES-FREE INJ 10 MG/10 ML VIAL (J2274) As Ordered ONE (19:34)
[2020-03-23] MEDS ORDERED: OXYTOCIN INJ 10 UNITS/ML VIAL (J2590) As Ordered ONE (19:35)
[2020-03-23] MEDS ORDERED: NALBUPHINE HCL 10 MG/ML AMP (J2300) IV PRN (19:54)
[2020-03-23] MEDS ORDERED: METOCLOPRAMIDE INJ 10MG/2ML VIAL (J2765 PER 1) IV PRN ×2 (19:54→21:30)
[2020-03-23] MEDS ORDERED: NALOXONE INJ 0.4MG/1ML VIAL (J2310 PER 1MG) IV PRN ×2 (19:54)
[2020-03-23] MEDS ORDERED: diphenhydrAMINE 50MG/ML VIAL (J1200) IV PRN (19:54)
[2020-03-23] MEDS ORDERED: ONDANSETRON 4MG/2ML VIAL IV PRN ×2 (19:54→21:30)
[2020-03-23] MEDS ORDERED: dexameTHASONE 4 MG/ML 1ML VIAL (J1100 PER 1MG) As Ordered ONE (20:16)
[2020-03-23] MEDS ORDERED: ONDANSETRON 4MG/2ML VIAL As Ordered ONE (20:16)
[2020-03-23] MEDS ORDERED: KETOROLAC 60MG 2ML VIAL As Ordered ONE (20:16)
[2020-03-23] MEDS ORDERED: MIDAZOLAM INJ 2MG/2ML VIAL (J2250 PER 1MG) As Ordered ONE (20:17)
[2020-03-23] MEDS ORDERED: ePHEDrine SULFATE 25 MG/5 ML(5MG/ML) SYRINGE As Ordered ONE (20:55)
[2020-03-23] MEDS ORDERED: OXYTOCIN 30 UNITS IN 0.9% NaCl 500ML IV BAG (J2590) As Ordered ONE (20:59)
[2020-03-23] MEDS ORDERED: RHOGAM 300 MCG (1500 IU) INJ (J2790) IM SCH (21:15)
[2020-03-23] MEDS ORDERED: PROMETHAZINE 25 MG TAB PO PRN (21:15)
[2020-03-23] MEDS ORDERED: ONDANSETRON 4 MG TAB PO PRN (21:15)
[2020-03-23] MEDS ORDERED: ACETAMINOPHEN 500 MG TAB PO PRN (21:15)
[2020-03-23] MEDS ORDERED: PERCOCET 5MG/325MG TAB PO PRN ×2 (21:15→21:30)
[2020-03-23] MEDS ORDERED: MEASLES,MUMPS,RUBELLA VACCINE INJ (MMR-II) (90707) SC SCH (21:15)
[2020-03-23] MEDS ORDERED: fentaNYL 100 MCG/2 ML INJECTION (J3010) As Ordered ONE (21:21)
[2020-03-23] MEDS ORDERED: fentaNYL 100 MCG/2 ML INJECTION (J3010) IV PRN (21:30)
[2020-03-23] MEDS ORDERED: MEPERIDINE INJ 25 MG/ML VIAL (J2175) IV PRN (21:30)
[2020-03-23] MEDS ORDERED: PERCOCET 5MG/325MG TAB As Ordered ONE (21:32)
[2020-03-23 23:39] VITALS: BP 136/76
[2020-03-24] VITALS (9 sets, daily range): BP systolic 130–162; BP diastolic 72–82
[2020-03-24] MEDS: KETOROLAC 30 MG/ML 1ML VIAL IV SCH ×3 (02:51→13:56)
[2020-03-24] MEDS: PERCOCET 5MG/325MG TAB PO PRN ×3 (05:15→20:38)
[2020-03-24] MEDS: COMBIVENT RESPIMAT 100-20MCG INHALER 4GM INH SCH ×2 (07:51→21:26)
[2020-03-24] MEDS ORDERED: PERCOCET PO (07:59)
[2020-03-24] MEDS ORDERED: DOCU100C16 PO (07:59)
[2020-03-24] MEDS ORDERED: IBUP80TA PO (07:59)
[2020-03-24 08:03] LABS: HEMATOCRIT 32.2 % (36.0-47.0); HEMOGLOBIN 10.3 g/dl (12.0-15.5); MEAN CORPUSCULAR HEMOGLOBIN 28.6 pg (27.0-33.0); MEAN CORPUSCULAR VOLUME 89.4 fl (80.0-96.0); PLATELET COUNT, AUTOMATED 288 10^3/uL (150-450); WHITE BLOOD COUNT 15.5 10^3/uL (4.0-10.0)
[2020-03-24] MEDS: DOCUSATE SODIUM 100 MG CAP PO SCH ×2 (08:16→20:38)
[2020-03-24] MEDS: PRENATAL VITAMINS CHEWABLE TABLET PO SCH (08:16)
[2020-03-24] MEDS ORDERED: BOOSTRIX/ADACEL VACCINE (DIPHTH/PERTUSS/ACELL/TETANUS) 0.5ML SYR IM ONE (11:00)
[2020-03-24] MEDS: LR 1,000 ML IV SCH (13:56)
[2020-03-24] MEDS: IBUPROFEN 800 MG TAB PO SCH (23:18)
[2020-03-25 02:00] VITALS: BP 147/70
[2020-03-25] MEDS: PERCOCET 5MG/325MG TAB PO PRN ×2 (03:17→09:41)
[2020-03-25 06:00] VITALS: BP 132/78
[2020-03-25] MEDS: IBUPROFEN 800 MG TAB PO SCH ×2 (06:21→13:51)
[2020-03-25] MEDS: COMBIVENT RESPIMAT 100-20MCG INHALER 4GM INH SCH (07:46)
[2020-03-25] MEDS: PRENATAL VITAMINS CHEWABLE TABLET PO SCH (09:40)
[2020-03-25] MEDS: DOCUSATE SODIUM 100 MG CAP PO SCH (09:41)
--- NOTE | 2020-04-10 11:02 | RO ---
DATE OF OPERATION: 03/23/2020 PREOPERATIVE DIAGNOSES: 1. Chronic hypertension. 2. Failed induction of labor. 3. 38+ weeks gestation. 4. Morbid obesity, BMI 50. POSTOPERATIVE DIAGNOSES: 1. Chronic hypertension. 2. Failed induction of labor. 3. 38+ weeks gestation. 4. Morbid obesity, BMI 50. PROCEDURE PERFORMED: Primary low-transverse section. SURGEON: Man Urban DO BUDGET ANALYST: Isael Hussein MD (essential role in tissue retraction, extraction and delivery of the baby, and all aspects of this high-risk section due to the patient's BMI). ANESTHESIA: Spinal. SPECIMENS SENT TO PATHOLOGY: None. ESTIMATED BLOOD LOSS: 600 mL. FLUIDS REPLACED: 1 liter lactated ringers. DRAINS: Miller catheter. URINE OUTPUT: 50 mL urine output via Miller catheter. COMPLICATIONS: None. DATA: Apgars 8 and 9, weight 3070 grams (6 pounds 12 ounces). INTRAOPERATIVE FINDINGS: Normal uterus and bilateral adnexa. Cephalic presentation noted. INDICATIONS: The patient underwent an induction of labor and was unable to achieve active labor after greater than 24 hours of medical intervention. DESCRIPTION OF PROCEDURE: The patient was counseled and consented on the risks, benefits, indications, and alternatives of the procedure. Informed consent was obtained. She was taken to the operating room with an IV running and placed on the operating room table where spinal anesthesia was administered and found to be adequate. The patient was then placed in the dorsal supine position with a leftward tilt. Sequential compression devices were placed on the lower extremities. Miller catheter was placed. She was prepared and draped in a normal sterile fashion. Time-out was performed per protocol. Spinal anesthesia was again found to be adequate. A Pfannenstiel skin incision was made with a 10- blade. This 10-blade was used to carry down to the rectus sheath fascia. The rectus sheath fascia was incised in the midline and extended bilaterally with Otero scissors and manual stretch. Salena clamps were used to grasp the superior aspect of the fascial incision. The rectus muscle bellies were dissected off bluntly and sharply. In a similar fashion, the inferior aspect of the fascial incision was grasped with Salena clamps and elevated. The rectus muscle bellies were dissected off sharply and bluntly. The peritoneum was identified. The peritoneum was entered digitally. The peritoneal opening was extended with manual stretch. A Mobius retractor was then placed. The vesicouterine peritoneum was dissected with the Metzenbaum scissors to create the bladder flap. A low transverse uterine incision was made with the 10-blade. The head and the body delivered with ease. There were no dystocia. The cord was doubly clamped and cut and the was handed off to the awaiting care. The placenta was removed manually. The uterus was cleared of all clots and debris. The hysterotomy was closed with 0-Vicryl in a running-locked fashion. This was reinforced with a second imbricating layer using 0-Vicryl. Excellent hemostasis of the hysterectomy was noted. The pelvis was irrigated and cleared of all clot and debris. The paracolic gutters were cleared of all clot and debris. The Mobius retractor was removed. The peritoneum was closed with 3-0 Vicryl. The rectus muscle bellies were reapproximated with 3-0 Vicryl. The fascia was closed with 0-Vicryl in a running fashion. The subcutaneous layer was closed in two layers using 3-0 Vicryl. The skin was closed with 4-0 Monocryl in a subcuticular fashion. Sponge, lap, needle, and instrument counts were correct. The patient tolerated the entire procedure very well. She was transferred to the PACU in good and stable condition. NATHANIEL
--- NOTE | 2020-06-10 20:52 | DS.PDOC ---
Discharge Summary General Date of Admission Mar 22, 2020 at 10:36 Date of Discharge 03/25/2020 Attending Physician: KELVIN LAMB DO Discharge Summary PROCEDURES PERFORMED DURING STAY: section. ADMITTING DIAGNOSES: 1. Induction of labor for chronic hypertension. DISCHARGE DIAGNOSES: 1. section for arrested dilation. COMPLICATIONS/CHIEF COMPLAINT: Induction. HISTORY OF PRESENT ILLNESS: Patient was admitted for induction labor for chronic hypertension. Had arrest of dilation. Underwent uncomplicated estimated blood loss is 600 mL. Patient did well postoperatively by postoperative day #2 had met all discharge criteria is as discharged home in stable condition. HOSPITAL COURSE: Uncomplicated. DISCHARGE MEDICATIONS: Please see below. ALLERGIES: Please see below. PHYSICAL EXAMINATION ON DISCHARGE: VITAL SIGNS: Please see below. GENERAL: Well-appearing ABDOMINAL EXAMINATION: Soft, probably tender, incision was dressed EXTREMITIES: Negative calf tenderness SKIN: Normal NEUROLOGICAL EXAMINATION: Intact PSYCHIATRIC EXAMINATION: Appropriate LABORATORY DATA: Please see below. ACTIVITY: Pelvic rest for 6 weeks. DIET: Regular DISCHARGE PLAN: Home DISPOSITION: Home, Self-Care. DISCHARGE INSTRUCTIONS: 1. Follow-up in 2 weeks for incision check 2. Reports severe pain heavy vaginal bleeding fever or incisional issues 3. Remain on pelvic rest for 6 weeks. DISCHARGE CONDITION: Stable. Discharge Medications Scheduled Docusate Sodium (Docusate Sodium) 100 Mg Capsule, 100 MG PO BID Ibuprofen (Ibuprofen) 800 Mg Tablet, 800 MG PO Q8H No.137/Iron/Folic Acd ( Vitamin Tablet) 1 Each Tablet, 1 TAB PO DAILY, (Reported) Thyroid,Pork (Test Preparation Tutor Thyroid) 30 Mg Tablet, 30 MG PO DAILY, (Reported) [Albuterol] , 90 MCG IH BID, (Reported) Scheduled PRN Oxycodone/Acetaminophen (Oxycodone-Acetaminophen 5-325) 1 Each Tablet, 1 TAB PO Q4H PRN for MILD/MODERATE PAIN (PS 1-7) Allergies Coded Allergies: Penicillins (Verified Allergy, Mild, RASH, 03/22/20) nickel (Verified Allergy, Mild, RASH, 03/22/20) ciprofloxacin (Verified Adverse Reaction, Unknown, NAUSEA, 03/22/20) JOSE HOPKINS MD. Jun 10, 2020 20:52
== END 2020-03-25 14:26 | disposition home or self-care (01) | DRG 540 ==
LOC: M LDI 10:36 → M OBS 03-23 23:18
PROVIDERS: ADMIT Advanced Practice Midwife; ATTEND Obstetrics & Gynecology
PROC: 3E0P7GC Introduction of Other Therapeutic Substance into Female Reproductive, Via Natural or Artificial Opening (ICD-10-PCS; 2020-03-22)
PROC: 10D00Z1 Extraction of Products of Conception, Low, Open Approach (ICD-10-PCS; principal; 2020-03-23 19:40)
DX: O10.02 Pre-existing essential hypertension complicating childbirth (principal); E66.01 Morbid (severe) obesity due to excess calories; O99.214 Obesity complicating childbirth; Z3A.38 38 weeks gestation of pregnancy; O99.52 Diseases of the respiratory system complicating childbirth; J45.909 Unspecified asthma, uncomplicated; O99.284 Endocrine, nutritional and metabolic diseases complicating childbirth; E06.3 Autoimmune thyroiditis; O61.0 Failed medical induction of labor; Z37.0 Single live birth

== ENCOUNTER → 2020-06-23 | Outpatient (CLI) | payer OTHER ==
[~2020-06-23] MED LIST changes: +ALBUTEROL IH; +ASPI1CHW3 PO; +DOCU100C16 PO; +NP T30TA PO; +PRENTAB9 PO
[2020-06-23 15:15] LABS: BASO % 0.4 % (0.0-1.0); EOS # 0.2 10^3/uL (0.0-0.5); EOS % 2.2 % (0.0-3.0); HEMOGLOBIN 12.5 g/dl (12.0-15.5); LYMPH # 2.2 10^3/uL (1.5-5.0); LYMPH % 24.1 % (24.0-44.0); MEAN CORPUSCULAR HEMOGLOBIN 27.9 pg (27.0-33.0); MEAN CORPUSCULAR HGB CONC 31.3 g/dl (32.0-36.5); MEAN CORPUSCULAR VOLUME 89.3 fl (80.0-96.0); MONO # 0.6 10^3/uL (0.0-0.8); MONO % 6.4 % (0.0-5.0); NEUTROPHILS # 6.1 10^3/uL (1.5-8.5); NEUTROPHILS % 66.6 % (36.0-66.0); PLATELET COUNT, AUTOMATED 379 10^3/uL (150-450); RED BLOOD COUNT 4.48 10^6/uL (4.00-5.40); WHITE BLOOD COUNT 9.2 10^3/uL (4.0-10.0)
[2020-06-23 15:33] LABS: ERYTHROCYTE SEDIMENTATION RATE 17 mm/hr (0-20)
[2020-06-23 15:52] LABS: ALBUMIN 3.7 GM/DL (3.2-5.2); ALT/SGPT 25 U/L (12-78); BILIRUBIN,TOTAL 0.2 MG/DL (0.2-1.0); BLOOD UREA NITROGEN 15 MG/DL (7-18); C REACTIVE PROTEIN QUANTITATIV 0.32 MG/DL (0.00-0.30); CALCIUM LEVEL 8.8 MG/DL (8.5-10.1); CARBON DIOXIDE LEVEL 23 MEQ/L (21-32); CHLORIDE LEVEL 111 MEQ/L (98-107); CREATININE FOR GFR 0.59 MG/DL (0.55-1.30); FREE T4 1.19 NG/DL (0.76-1.46); GLOMERULAR FILTRATION RATE > 60.0 (>60); GLUCOSE, FASTING 77 MG/DL (70-100); POTASSIUM SERUM 4.1 MEQ/L (3.5-5.1); SODIUM LEVEL 139 MEQ/L (136-145); TOTAL PROTEIN 6.9 GM/DL (6.4-8.2)
--- NOTE | 2020-06-23 17:08 | REP ---
INDICATION: NIGHT SWEATS, LAB 1ST THEN XR. COMPARISON: PA and lateral chest dated 08/09/2011. TECHNIQUE: PA and lateral chest. FINDINGS: The lung hernandez are clear. The cardiac size is normal. The kwame, mediastinum, and skeletal structures are unremarkable. There is no mediastinal or hilar enlargement. IMPRESSION: Negative PA and lateral chest. <Electronically signed by Ghassan Burgess > 06/23/20 [id number]
== END ==
LOC: M LAB 14:35
PROVIDERS: ATTEND Physician Assistant
DX: R61 Generalized hyperhidrosis (principal); R51.9 Headache, unspecified; M89.8X9 Other specified disorders of bone, unspecified site; E06.3 Autoimmune thyroiditis

== ENCOUNTER 2021-09-09 19:42 | Emergency (ER) | payer MEDICAID, OTHER ==
[~2021-09-09] VITALS: Ht 162.6 cm; Wt 116.8 kg
[~2021-09-09 19:42] MED LIST changes: +ACYC1TAB PO; -ACYC400T PO
[2021-09-09 19:43] VITALS: BP 128/72
[2021-09-09] MEDS ORDERED: CLON0.5T17 PO (19:50)
[2021-09-09] MEDS ORDERED: VYVA60CA PO (19:50)
[2021-09-09] MEDS ORDERED: clonazePAM 0.5 MG TAB PO ONE (20:35)
[2021-09-09 20:51] LABS: BASO # 0.1 10^3/uL (0.0-0.2); BASO % 0.7 % (0.0-1.0); EOS # 0.2 10^3/uL (0.0-0.5); EOS % 1.7 % (0.0-3.0); HEMATOCRIT 33.6 % (36.0-47.0); LYMPH # 1.9 10^3/uL (1.5-5.0); LYMPH % 19.1 % (24.0-44.0); MEAN CORPUSCULAR HEMOGLOBIN 28.4 pg (27.0-33.0); MEAN CORPUSCULAR HGB CONC 32.7 g/dl (32.0-36.5); MEAN CORPUSCULAR VOLUME 86.8 fl (80.0-96.0); MONO # 0.7 10^3/uL (0.0-0.8); MONO % 6.8 % (2.0-8.0); NEUTROPHILS # 7.2 10^3/uL (1.5-8.5); NEUTROPHILS % 71.4 % (36.0-66.0); PLATELET COUNT, AUTOMATED 347 10^3/uL (150-450); RED BLOOD COUNT 3.87 10^6/uL (4.00-5.40)
[2021-09-09 21:16] LABS: AMPHETAMINES LEVEL URINE POSITIVE (NEGATIVE); BARBITURATES URINE NEGATIVE (NEGATIVE); BENZODIAZEPINES URINE NEGATIVE (NEGATIVE); CANNABINOIDS URINE POSITIVE (NEGATIVE); COCAINE METABOLITE URINE NEGATIVE (NEGATIVE); METHADONE URINE NEGATIVE (NEGATIVE); OPIATES URINE NEGATIVE (NEGATIVE); PHENCYCLIDINE URINE NEGATIVE (NEGATIVE)
[2021-09-09 21:21] LABS: CK-MB VALUE MASS 1.9 NG/ML (<3.6); MB/CK RELATIVE INDEX 1.37 (< OR =4)
[2021-09-09 21:25] LABS: HCG, SERUM QUALITATIVE NEGATIVE (NEGATIVE)
[2021-09-09 21:31] LABS: ACETAMINOPHEN LEVEL < 2.0 UG/ML (10.0-30.0); BLOOD UREA NITROGEN 10 MG/DL (7-18); CALCIUM LEVEL 8.4 MG/DL (8.5-10.1); CARBON DIOXIDE LEVEL 24 MEQ/L (21-32); CHLORIDE LEVEL 104 MEQ/L (98-107); CREATININE FOR GFR 0.62 MG/DL (0.55-1.30); ETHYL ALCOHOL (ETHANOL) < 0.003 % (0.000-0.010); FREE T4 1.33 NG/DL (0.76-1.46); GLOMERULAR FILTRATION RATE > 60.0 (>60); GLUCOSE, FASTING 95 MG/DL (70-100); POTASSIUM SERUM 4.4 MEQ/L (3.5-5.1); SALICYLATE LEVEL < 1.7 MG/DL (5.0-30.0); SODIUM LEVEL 134 MEQ/L (136-145); THYROID STIMULATING HORMONE 0.794 uIU/ML (0.358-3.740)
== END 2021-09-09 21:51 | disposition left against medical advice (07) ==
LOC: M ED 19:42
DX: R07.9 Chest pain, unspecified (principal); I10 Essential (primary) hypertension; F41.9 Anxiety disorder, unspecified; Z53.20 Procedure and treatment not carried out because of patient's decision for unspecified reasons; Z88.0 Allergy status to penicillin; Z88.8 Allergy status to other drugs, medicaments and biological substances

== ENCOUNTER → 2022-04-08 | Outpatient (REF) | payer OTHER ==
[~2022-04-08] MED LIST changes: +CLON0.5T17 PO; +VYVA60CA PO
== END ==
LOC: M SFHCPLAZ 17:34
PROVIDERS: ATTEND Student in an Organized Health Care Education/Training Program
DX: N30.00 Acute cystitis without hematuria (principal)

== ENCOUNTER → 2022-06-17 | Outpatient (CLI) | payer OTHER, MEDICAID ==
[2022-06-17 15:45] LABS: HEMATOCRIT 38.5 % (36.0-47.0); HEMOGLOBIN 12.2 g/dl (12.0-15.5); MEAN CORPUSCULAR HGB CONC 31.7 g/dl (32.0-36.5); MEAN CORPUSCULAR VOLUME 91.4 fl (80.0-96.0); PLATELET COUNT, AUTOMATED 396 10^3/uL (150-450); RED BLOOD COUNT 4.21 10^6/uL (4.00-5.40)
[2022-06-17 16:59] LABS: LIPASE 27 U/L (12-53)
[2022-06-17 17:01] LABS: ALBUMIN 4.2 G/DL (3.2-5.2); ALKALINE PHOSPHATASE 71 U/L (46-116); ALT/SGPT 18 U/L (7.0-40); AST/SGOT 15 U/L (<34); BILIRUBIN,TOTAL 0.3 MG/DL (0.3-1.2); BLOOD UREA NITROGEN 9 MG/DL (9-23); CALCIUM LEVEL 9.6 MG/DL (8.5-10.1); CARBON DIOXIDE LEVEL 25 MMOL/L (20-31); CHLORIDE LEVEL 103 MMOL/L (98-107); CHOLESTEROL LEVEL 171 MG/DL (<200); CREATININE FOR GFR 0.68 MG/DL (0.55-1.30); GLOMERULAR FILTRATION RATE > 60.0 (>60); GLUCOSE, FASTING 80 MG/DL (60-100); LDL CHOLESTEROL 96.4 MG/DL (<100); NON-HDL-C 114 MG/DL; POTASSIUM SERUM 3.9 MMOL/L (3.5-5.1); SODIUM LEVEL 140 MMOL/L (136-145); TOTAL PROTEIN 6.7 G/DL (5.7-8.2); TRIGLYCERIDES LEVEL 88 MG/DL (<150)
== END ==
LOC: M PLALAB 13:58
PROVIDERS: ATTEND Student in an Organized Health Care Education/Training Program
DX: K21.9 Gastro-esophageal reflux disease without esophagitis (principal)

== ENCOUNTER → 2022-06-17 | Outpatient (CLI) | payer OTHER, MEDICAID ==
[2022-06-17 16:58] LABS: THYROID STIMULATING HORMONE 2.827 uIU/ML (0.55-4.78)
[2022-06-17 17:00] LABS: FREE T4 1.26 NG/DL (0.89-1.76)
== END ==
LOC: M PLALAB 13:57
PROVIDERS: ATTEND Student in an Organized Health Care Education/Training Program
DX: Z86.39 Personal history of other endocrine, nutritional and metabolic disease (principal)

== ENCOUNTER → 2022-07-25 | Outpatient (CLI) | payer OTHER, MEDICAID ==
[2022-07-25 17:35] LABS: HEMATOCRIT 36.3 % (36.0-47.0); HEMOGLOBIN 11.6 g/dl (12.0-15.5); MEAN CORPUSCULAR HEMOGLOBIN 29.5 pg (27.0-33.0); MEAN CORPUSCULAR VOLUME 92.4 fl (80.0-96.0); PLATELET COUNT, AUTOMATED 333 10^3/uL (150-450); RED BLOOD COUNT 3.93 10^6/uL (4.00-5.40); WHITE BLOOD COUNT 8.8 10^3/uL (4.0-10.0)
== END ==
LOC: M PLALAB 15:14
PROVIDERS: ATTEND Student in an Organized Health Care Education/Training Program
DX: R53.83 Other fatigue (principal)

== ENCOUNTER 2022-08-19 03:01 | Emergency (ER) | payer MEDICAID, OTHER ==
[~2022-08-19] VITALS: Ht 162.6 cm; Wt 106.4 kg
[2022-08-19 04:05] LABS: HEMATOCRIT 40.1 % (36.0-47.0); MEAN CORPUSCULAR HEMOGLOBIN 29.2 pg (27.0-33.0); MEAN CORPUSCULAR HGB CONC 32.4 g/dl (32.0-36.5); MEAN CORPUSCULAR VOLUME 90.1 fl (80.0-96.0); PLATELET COUNT, AUTOMATED 415 10^3/uL (150-450); RED BLOOD COUNT 4.45 10^6/uL (4.00-5.40)
[2022-08-19 04:21] LABS: BARBITURATES URINE NEGATIVE (NEGATIVE); COCAINE METABOLITE URINE NEGATIVE (NEGATIVE); METHADONE URINE NEGATIVE (NEGATIVE); OPIATES URINE NEGATIVE (NEGATIVE); PHENCYCLIDINE URINE NEGATIVE (NEGATIVE)
[2022-08-19 04:23] LABS: ETHYL ALCOHOL (ETHANOL) 0.003 % (0.000-0.010)
[2022-08-19 04:24] LABS: ACETAMINOPHEN LEVEL < 2.0 UG/ML (10.0-20.0)
[2022-08-19 04:25] LABS: ALKALINE PHOSPHATASE 67 U/L (46-116); ALT/SGPT 14 U/L (7.0-40); AST/SGOT 17 U/L (<34); BILIRUBIN,DIRECT 0.1 MG/DL (<0.4); BILIRUBIN,TOTAL 0.3 MG/DL (0.3-1.2); BLOOD UREA NITROGEN 10 MG/DL (9-23); CALCIUM LEVEL 9.3 MG/DL (8.5-10.1); CARBON DIOXIDE LEVEL 25 MMOL/L (20-31); CHLORIDE LEVEL 104 MMOL/L (98-107); CREATININE FOR GFR 0.62 MG/DL (0.55-1.30); GLOMERULAR FILTRATION RATE > 60.0 (>60); GLUCOSE, FASTING 105 MG/DL (60-100); POTASSIUM SERUM 3.8 MMOL/L (3.5-5.1); SALICYLATE LEVEL < 3.0 MG/DL (<30); SODIUM LEVEL 139 MMOL/L (136-145); TOTAL PROTEIN 6.8 G/DL (5.7-8.2)
[2022-08-19 04:27] LABS: THYROID STIMULATING HORMONE 0.833 uIU/ML (0.55-4.78)
[2022-08-19 04:28] LABS: AMPHETAMINES LEVEL URINE POSITIVE (NEGATIVE); BENZODIAZEPINES URINE POSITIVE (NEGATIVE); CANNABINOIDS URINE POSITIVE (NEGATIVE)
[2022-08-19 04:32] LABS: HCG, SERUM QUALITATIVE NEGATIVE (NEGATIVE)
[2022-08-19 04:34] LABS: RSV AMPLIFICATION NEGATIVE (NEGATIVE)
[2022-08-19 12:42] VITALS: BP 134/80
[2022-08-19] MEDS ORDERED: ALBU8.5H INH (13:00)
[2022-08-19] MEDS ORDERED: BUPR300T92 PO (13:00)
[2022-08-19] MEDS ORDERED: COMBAER6 INH (13:00)
[2022-08-19] MEDS ORDERED: CARB200T98 PO (13:00)
[2022-08-19] MEDS ORDERED: PHEN-239 PO (13:00)
[2022-08-19] MEDS ORDERED: CLON0.5T2 PO (13:00)
[2022-08-19] MEDS ORDERED: LACT1CAP15 PO (13:00)
[2022-08-19] MEDS ORDERED: VYVA50CA4 PO (13:00)
[2022-08-19] MEDS ORDERED: HOME MED LIST COMPLETE! XX SCH (13:00)
[2022-08-19] MEDS ORDERED: LEVO25TA5 PO (13:00)
== END 2022-08-19 12:58 | disposition home or self-care (01) ==
LOC: M ED 03:01
DX: F32.A Depression, unspecified (principal); J45.909 Unspecified asthma, uncomplicated; U07.0 Vaping-related disorder; F12.10 Cannabis abuse, uncomplicated; Z88.0 Allergy status to penicillin; Z88.1 Allergy status to other antibiotic agents; Z91.09 Other allergy status, other than to drugs and biological substances; Z79.899 Other long term (current) drug therapy

== ENCOUNTER → 2023-04-02 | Outpatient (REF) | payer OTHER ==
[~2023-04-02] MED LIST changes: +ALBU8.5H INH; +ASPI-655 PO; -ASPI1CHW3 PO; +BUPR300T92 PO; +CARB200T98 PO; +CLON0.5T2 PO; +LACT1CAP15 PO; +LEVO25TA5 PO; +PHEN-239 PO; +VYVA50CA4 PO
== END ==
LOC: M SFHCPLAZ 12:55
PROVIDERS: ATTEND Student in an Organized Health Care Education/Training Program
DX: E06.3 Autoimmune thyroiditis (principal); F31.81 Bipolar II disorder

== ENCOUNTER → 2024-05-10 | Outpatient (CLI) | payer OTHER ==
[~2024-05-10] MED LIST changes: +BUPR-597 PO; -BUPR300T92 PO; +CARB-115 PO; -CARB200T98 PO
== END ==
LOC: M RAD 12:53
PROVIDERS: ATTEND Physician Assistant
DX: R10.2 Pelvic and perineal pain (principal)

== ENCOUNTER 2024-06-15 11:25 | Emergency (ER) | payer OTHER ==
[~2024-06-15] VITALS: Ht 162.6 cm; Wt 126.2 kg
[2024-06-15 11:38] VITALS: TEMP 97.8
[2024-06-15] MEDS: LIDOCAINE 2% W/ EPINEPHRINE 1.7 ML DENTAL INJ SM ONE (14:45)
[2024-06-15] MEDS: BENZOCAINE 20% GEL 9GM TUBE (ANBESOL MAX STRENGTH) TOP ONE (14:45)
[2024-06-15] MEDS: KETOROLAC 60MG 2ML VIAL IM ONE (14:45)
[2024-06-15] MEDS ORDERED: IBUP-1022 PO (15:31)
[2024-06-15 15:42] VITALS: BP 124/76; O2SAT 98
== END 2024-06-15 15:43 | disposition home or self-care (01) ==
LOC: M ED 11:25
DX: K08.89 Other specified disorders of teeth and supporting structures (principal); I10 Essential (primary) hypertension; J45.909 Unspecified asthma, uncomplicated; Z87.891 Personal history of nicotine dependence; Z88.0 Allergy status to penicillin; Z88.1 Allergy status to other antibiotic agents; Z79.51 Long term (current) use of inhaled steroids; Z79.1 Long term (current) use of non-steroidal anti-inflammatories (NSAID); Z79.899 Other long term (current) drug therapy
CPT/HCPCS: 64400; 96372; 99283; J1885

== ENCOUNTER → 2024-06-18 | Outpatient (REF) | payer OTHER ==
[~2024-06-18] MED LIST changes: +IBUP-1022 PO
[2024-06-18 21:56] LABS: APPEARANCE, URINE CLEAR (CLEAR); BACTERIA, URINE AUTO NEGATIVE (NEGATIVE); BILIRUBIN, URINE AUTO NEGATIVE (NEGATIVE); BLOOD, URINE BLOOD NEGATIVE (NEGATIVE); COLOR, URINE YELLOW (YELLOW); GLUCOSE, URINE (UA) AUTO NEGATIVE (NEGATIVE); KETONE, URINE AUTO NEGATIVE (NEGATIVE); LEUKOCYTE ESTERASE, URINE AUTO NEGATIVE (NEGATIVE); MUCUS, URINE SMALL (NEGATIVE); NITRITE, URINE AUTO NEGATIVE (NEGATIVE); PROTEIN, URINE AUTO NEGATIVE (NEGATIVE); RBC, URINE AUTO 1 /HPF (0-3); SPECIFIC GRAVITY URINE AUTO 1.018 (1.002-1.035); SQUAMOUS EPITHELIAL CELL UR AU 1 /HPF (0-6); UROBILINOGEN, URINE AUTO 0.2 mg/dL (0.0-2.0); WBC, URINE AUTO 1 /HPF (0-3)
== END ==
LOC: M LAB REF 21:45
PROVIDERS: ATTEND Physician Assistant Medical
DX: N39.0 Urinary tract infection, site not specified (principal)

== ENCOUNTER → 2024-06-21 | Outpatient (REF) | payer OTHER | LOC: M SFHCPLAZ 16:38 | PROVIDERS: ATTEND Student in an Organized Health Care Education/Training Program | DX: D64.9 Anemia, unspecified (principal); Z13.1 Encounter for screening for diabetes mellitus; E55.9 Vitamin D deficiency, unspecified; I10 Essential (primary) hypertension; E06.3 Autoimmune thyroiditis ==

== ENCOUNTER → 2024-06-22 | Outpatient (CLI) | payer OTHER ==
[2024-06-22 14:26] LABS: BASO # 0.1 10^3/uL (0.0-0.2); BASO % 0.7 % (0.0-1.0); EOS # 0.4 10^3/uL (0.0-0.5); EOS % 4.7 % (0.0-3.0); HEMATOCRIT 37.1 % (36.0-47.0); HEMOGLOBIN 11.9 g/dl (12.0-15.5); LYMPH # 1.9 10^3/uL (1.5-5.0); LYMPH % 21.7 % (24.0-44.0); MEAN CORPUSCULAR HEMOGLOBIN 27.9 pg (27.0-33.0); MEAN CORPUSCULAR HGB CONC 32.1 g/dl (32.0-36.5); MEAN CORPUSCULAR VOLUME 87.1 fl (80.0-96.0); MONO # 0.6 10^3/uL (0.0-0.8); MONO % 6.5 % (2.0-8.0); NEUTROPHILS # 5.8 10^3/uL (1.5-8.5); NEUTROPHILS % 65.9 % (36.0-66.0); PLATELET COUNT, AUTOMATED 384 10^3/uL (150-450); RED BLOOD COUNT 4.26 10^6/uL (4.00-5.40); WHITE BLOOD COUNT 8.8 10^3/uL (4.0-10.0)
[2024-06-22 14:53] LABS: PERCENT SATURATION 16.2 % (13.2-45.0)
[2024-06-22 14:57] LABS: FERRITIN 13.6 NG/ML (7.3-270.7); FREE T4 1.03 NG/DL (0.89-1.76)
[2024-06-22 14:58] LABS: THYROID STIMULATING HORMONE 2.114 uIU/ML (0.55-4.78); TOTAL 25(OH) VITAMIN D 9.2 NG/ML (20.0-100.0)
[2024-06-22 15:37] LABS: HEMOGLOBIN A1c 5.2 % (4.0-6.0)
== END ==
LOC: M LAB 13:37
PROVIDERS: ATTEND Student in an Organized Health Care Education/Training Program
DX: D64.9 Anemia, unspecified (principal)

== ENCOUNTER → 2024-07-14 | Outpatient (CLI) | payer OTHER ==
[2024-07-14 12:32] LABS: ALBUMIN 3.5 G/DL (3.2-5.2); ALKALINE PHOSPHATASE 73 U/L (35-104); ALT/SGPT 18 U/L (7.0-40); AST/SGOT 19 U/L (<34); BILIRUBIN,TOTAL 0.2 MG/DL (0.3-1.2); BLOOD UREA NITROGEN 8 MG/DL (9-23); CALCIUM LEVEL 8.9 MG/DL (8.5-10.1); CARBON DIOXIDE LEVEL 28 MMOL/L (20-31); CHLORIDE LEVEL 107 MMOL/L (98-107); CREATININE FOR GFR 0.63 MG/DL (0.55-1.30); GLOMERULAR FILTRATION RATE > 60.0 (>60); GLUCOSE, FASTING 81 MG/DL (60-100); POTASSIUM SERUM 4.2 MMOL/L (3.5-5.1); SODIUM LEVEL 141 MMOL/L (136-145); TOTAL PROTEIN 6.7 G/DL (5.7-8.2)
== END ==
LOC: M LAB 11:34
PROVIDERS: ATTEND Student in an Organized Health Care Education/Training Program
DX: Z01.89 Encounter for other specified special examinations (principal)